=== PATIENT | male | born 1960 ===

== ENCOUNTER 2017-09-01 12:24 | Inpatient (IN) | payer MEDICAID ==
--- NOTE | 2017-09-01 13:35 | RAD ---
HISTORY: baseline COMPARISON: No prior. TECHNIQUE: Chest PA and lateral FINDINGS: LUNGS: No active pulmonary disease. PLEURA: No significant pleural effusion identified. No pneumothorax apparent. CARDIOVASCULAR: Normal. OSSEOUS STRUCTURES: No significant abnormalities. VISUALIZED UPPER ABDOMEN: Normal. OTHER FINDINGS: None. IMPRESSION: No active disease.
[2017-09-01 13:46] LABS: BASO % 0.5 % (0.0-2.0); EOS % 0.1 % (0.0-4.0); HEMATOCRIT 42.6 % (35.0-51.0); LYMPH % 13.9 % (20.0-40.0); MEAN CELL VOLUME 88.2 fL (80.0-94.0); MEAN CORPUSCULAR HEMOGLOBIN 29.2 pg (27.0-31.0); MEAN CORPUSCULAR HGB CONC 33.2 g/dL (33.0-37.0); MEAN PLATELET VOLUME 8.9 fL (7.2-11.7); MONO # 0.2 K/uL (0.0-0.8); MONO % 2.8 % (0.0-10.0); NRBC % 0.3 % (0.0-2.0); WHITE BLOOD COUNT 6.9 K/uL (4.8-10.8)
[2017-09-01 13:48] LABS: RBC URINE 1 /hpf (0-3); URINE BACTERIA RARE (<OCC); URINE BILIRUBIN NEGATIVE (NEGATIVE); URINE BLOOD NEGATIVE (NEGATIVE); URINE COLOR Yellow (YELLOW); URINE GLUCOSE (UA) NORMAL (Normal); URINE KETONE NEGATIVE (NEGATIVE); URINE LEUKOCYTE ESTERASE NEG Leu/uL (Negative); URINE PROTEIN 1+ mg/dL (NEGATIVE); URINE UROBILINOGEN NORMAL mg/dL (0.2-1.0); WBC URINE < 1 /hpf (0-5)
[2017-09-01 14:03] LABS: ALB/GLOB RATIO 0.8 (1.0-2.1); ALCOHOL SERUM < 10 mg/dl (0-10); ALKALINE PHOSPHATASE 69 U/L (38-126); ALT/SGPT 48 U/L (21-72); AST/SGOT 33 U/L (17-59); BILIRUBIN,TOTAL 0.4 mg/dL (0.2-1.3); BLOOD UREA NITROGEN 13 mg/dL (9-20); CALCIUM 8.4 mg/dl (8.6-10.4); CARBON DIOXIDE 27 mmol/L (22-30); CHLORIDE 104 mmol/L (98-107); GFR AFRICAN-AMERICAN > 60; GLUCOSE,RANDOM 244 mg/dL (75-110); POTASSIUM 3.5 mmol/L (3.6-5.2); SODIUM 140 mmol/L (132-148); TOTAL PROTEIN 8.6 g/dL (6.3-8.3)
--- NOTE | 2017-09-01 14:25 | C.PDOC ---
History Of Present Illness 56 y/o male presents to ED requesting detox from heroin. Pt is prescreened. Last use last night. No physical complaints at this time. Time Seen by Provider: 09/01/17 12:48 Chief Complaint (Nursing): Substance Abuse History Per: Patient History/Exam Limitations: no limitations Onset/Duration Of Symptoms: Gradual Current Symptoms Are (Timing): Still Present Suicide/Self Injury Attempted (Context): None Severity: None Pain Scale Rating Of: 0 Associated Symptoms: denies: Suicidal Thoughts, Suicidal Plan Involuntary Hold By: None Recent travel outside of the [place]: No Additional History Per: Patient Past Medical History Reviewed: Historical Data, Nursing Documentation, Vital Signs Vital Signs: Last Vital Signs Temp 97.9 F 09/01/17 17:11 Pulse 72 09/01/17 17:11 Resp 18 09/01/17 17:11 BP 123/76 09/01/17 17:11 Pulse Ox 97 09/01/17 17:11 - Medical History PMH: Asthma, HIV Family History: States: Unknown Family Hx - Social History Hx Alcohol Use: No Hx Substance Use: Yes - Immunization History Hx Tetanus Toxoid Vaccination: No Hx Influenza Vaccination: No Hx Pneumococcal Vaccination: Yes Review Of Systems Except As Marked, All Systems Reviewed And Found Negative. Constitutional: Negative for: Fever, Chills Cardiovascular: Negative for: Chest Pain, Palpitations Respiratory: Negative for: Shortness of Breath Gastrointestinal: Negative for: Nausea, Vomiting, Abdominal Pain Psych: Negative for: Suicidal ideation Physical Exam - Physical Exam Appears: Non-toxic, No Acute Distress Skin: Normal Color, Warm, Dry Head: Atraumatic, Normacephalic Eye(s): bilateral: Normal Inspection Oral Mucosa: Moist Cardiovascular: Rhythm Regular Respiratory: No Accessory Muscle Use Extremity: Normal ROM Neurological/Psych: Oriented x3, Normal Speech ED Course And Treatment - Laboratory Results Result Diagrams: 09/01/17 13:39 09/01/17 13:39 O2 Sat by Pulse Oximetry: 100 Pulse Ox Interpretation: Normal Progress Note: Blood work, UA, EKG, CXR ordered and reviewed. On re-evaluation, patient is resting comfortably, no acute distress. Patient was medically cleared and was accepted to detox by . Disposition - Disposition Disposition: HOSPITALIZED Disposition Time: 15:18 Condition: STABLE - Clinical Impression Clinical Impression: Opiate dependence - PA / RESULTS TECHNICIAN / Resident Statement / has reviewed & agrees with the documentation as recorded. - Scribe Statement The provider has reviewed the documentation as recorded by the Scribe Aly Mcpherson All medical record entries made by the Ade were at my direction and personally dictated by me. I have reviewed the chart and agree that the record accurately reflects my personal performance of the history, physical exam, medical decision making, and the department course for this patient. I have also personally directed, reviewed, and agree with the discharge instructions and disposition.
--- NOTE | 2017-09-01 16:00 | PCM.BM ---
<Dianne Brown - Last Filed: 09/01/17 15:59> Treatment Plan Problems - Problems identified on initial assessmt Ineffective Coping Skills Date Initiated: 09/01/17 Time Initiated: 16:00 Assessment reference: NA Status: Active Treatment assets and liabiliti Patient Assests: negotiates basic needs Patient Liabilities: substance abuse, medical problems - Milieu Protocol Maintain good personal hygiene: daily Encourage regular showers, daily Remind patient to perform daily oral care, other Assist patient to perform ADL's Maintain personal safety: every shift Educate patient to report safety concerns to staff, every shift Monitor environment for contraband/sharps Medication safety: Monitor for expected outcome, potential side effects: every shift, Assess barriers to learning: every shift, Assess readiness for medication education: every shift <Cj Chappell - Last Filed: 09/05/17 00:35> - Diagnosis (1) Opiate dependence Status: Acute Interventions: 09/05/17 00:35 * Assess 7x/week regarding severity of withdrawal * Educate regarding risks, benefits, side effects and alternatives of medications * Use Motivational Interviewing for abstinence * Use CBT for relapse prevention * Medication management for withdrawal symptoms * Encourage medication assisted treatment *
[2017-09-01] MEDS ORDERED: Buprenorphine Hydrochloride 2 mg SL ONE ×3 (17:22→18:25)
[2017-09-01] MEDS ORDERED: Aluminum Hydroxide/Magnesium Hydroxide Susp (30 mL) PO PRN (18:15)
--- NOTE | 2017-09-02 07:28 | PCM.PSYCH ---
Initial Psychiatric Evaluation - Initial Psychiatric Evaluation Type of Admission: Voluntary Legal Status: Capacity Chief Complaint (in patient's own words): I am withdrawing fro heroin'. History of Present Illness and Precipitating Events: This is a 56 years old HM, who lives alone and currently unemployed, came to the hospital for detox from heroin. As per the ED notes, pt reported to use 2-20bags/day intranasally for 13 year, last use was yesterday. Pt. attended detox at [facility] in 2006. His longest period of sobriety is almost 7 years. Pt reported that he relapsed this year and started sniffing 2-5 bags daily. Yesterday he sniffed 2 bags of heroin, and started developing withdrawal symptoms including reported as back pains, dizziness, runny nose, and irritability. Pt. reports 1 episode of seizure in 2011 from xanax w/d. Pt. says he has a 09/07 appointment with a pain management doctor. He reports irritability, but denies any feelings of hopelessness and helplessness, or any suicidal ideation or homicidal ideation. He denies any psychotic symptoms including any auditory or visual hallucinations or any delusions. He denies any other substance abuse. Pt. hopes to attend [facility] upon detox completion. PMH: Asthma, HIV, Cardiac issues? H/o seizures Current Medications: Active Medications Generic Name Dose Route Start Last Admin Trade Name Freq PRN Reason Stop Dose Admin Al Hydrox/Mg Hydrox/Simethicone 30 ml 09/01/17 18:15 Maalox 30 Ml PO TID PRN Indigestion / Heartburn Buprenorphine HCl 8 mg 09/02/17 18:15 Subutex SL 09/05/17 18:14 .TAPER KATI Taper Clonidine HCl 0.1 mg 09/01/17 18:15 Catapres PO Q8 PRN COWS Score More or Equal to 5 Hydroxyzine HCl 25 mg 09/01/17 18:16 09/01/17 22:11 Atarax PO 25 mg Q6 PRN Administration Agitation Loperamide HCl 2 mg 09/01/17 18:15 Imodium PO Q8 PRN Diarrhea Ondansetron HCl 4 mg 09/01/17 18:15 Zofran Tab PO Q8 PRN Nausea/Vomiting Trazodone HCl 50 mg 09/01/17 18:21 09/01/17 22:11 Desyrel PO 50 mg HS PRN Administration Insomnia Past Psychiatric History - Past Psychiatric History Previous Treatment History: Inpatient Pertinent Medical Hx (Current Medical&Sleep Prob, Allergies): Allergies Allergy/AdvReac Type Severity Reaction Status Date / Time No Known Allergies Allergy Verified 09/01/17 12:33 Albuterol HFA [Ventolin HFA 90 mcg/actuation (8 g)] 2 puff IH [id number] PRN Efavirenz/Emtricitab/Tenofovir [Atripla Tablet] 1 each PO DAILY 09/01/17 Sulfamethoxazole/Trimethoprim [Sulfatrim 800-160 mg/20 ml Ariana] 20 ml PO BID 10/18 Review of Systems - Review of Systems All systems: reviewed and no additional remarkable complaints except - Psychiatric Psychiatric: Anxiety, Irritability Mental Status Examination - Personal Presentation Personal Presentation: Looks stated age - Affect Affect: Constricted - Motor Activity Motor Activity: Calm - Reliability in Providing Information Reliability in Providing Information: Good - Speech Speech: Organized - Mood Mood: Anxious - Formal Thought Process Formal Thought Process: No Impairment - Obsessions/Compulsions Obsessions: No Compulsions: No - Cognitive Functions Orientation: Person, Place, Situation, Time Sensorium: Alert Attention/Concentration: Attentive Abstract Thinking: [place] Estimate of Intelligence: Below average Judgement: Imparied, as evidence by: Poor judgement, Intact, as evidence by: Insight regarding need for hospitalization - Risk Risk: Withdrawal, Diminished functioning - Limitations Limitations: Living alone DSM 5 DX - DSM 5 DSM 5 Diagnosis: Opioid use disorder severe Opioid withdrawal - Recommended/Plan of Treatment Treatment Recommendations and Plan of Treatment: Opioid use disorder severe CBT Psychoeducation Supportive therapy, individual therapy Use NH for abstinence Opioid withdrawal CBT Psychoeducation Supportive therapy, individual therapy Clonidine when necessary Subutax taper Trazodone 50 mg Hydroxyzine 25 mg prn PRN meds Asthma: Continue prescribed medications Monitor signs and symptoms HIV: Continue prescribed medications Monitor signs and symptoms H/o Heart disease: Monitor signs and symptoms - Smoking Cessation Smoking Cessation Initiated: No
[2017-09-02] MEDS: Buprenorphine Hydrochloride 2 mg SL SCH (10:35)
[2017-09-02] MEDS ORDERED: Buprenorphine Hydrochloride 2 mg SL SCH (18:15)
[2017-09-02] MEDS ORDERED: Albuterol HFA 90 mcg/actuation (8 g) INH PRN (23:01)
--- NOTE | 2017-09-03 09:11 | PCM.PYCHPN ---
Psychiatric Progress Note - Psychiatric Progress Note Patient seen today, length of contact: 15 min Patient Chief Complaint: I am withdrawing fro heroin'. Problems Identified/Issues Discussed: Patient seen and evaluated, chart reviewed and discussed with the nurse. Patient still reports withdrawal symptoms including nausea, headaches, cramps and sweating. He reports irritable mood but denies any feelings of hopelessness and helplessness. He denies any SI/HI/AVH. She is taking medication and denies any side effects. He needs more time for stabilization. Supportive therapy and psychoeducation were given. Medication Change: Yes (subutex taper) Medical Record Reviewed: Yes Mental Status Examination - Cognitive Function Orientation: Person, Place, Situation, Time Memory: Intact Attention: WNL Concentration: Poor Association: WNL Fund of Knowledge: Poor - Mood Mood: Anxious - Affect Affect: Constricted - Speech Speech: Soft - Formal Thought Process Formal Thought Process: No Impairment - Suicidal Ideation Suicidal Ideation: No - Homicidal Ideation Homicidal Ideation: No Goal/Treatment Plan - Goal/Treatment Plan Need for Continued Stay: Severe depression anxiety, Severe functional impairment Progress Toward Problem(s) and Goals/Treatment Plan: Opioid use disorder severe CBT Psychoeducation Supportive therapy, individual therapy Use MT for abstinence Opioid withdrawal CBT Psychoeducation Supportive therapy, individual therapy Clonidine when necessary Subutax taper Trazodone 50 mg Hydroxyzine 25 mg prn PRN meds Asthma: Continue prescribed medications Monitor signs and symptoms HIV: Continue prescribed medications Monitor signs and symptoms H/o Heart disease: Monitor signs and symptoms - Smoking Cessation Smoking Cessation Initiated: No
[2017-09-03] MEDS: Buprenorphine Hydrochloride 2 mg SL SCH (09:29)
[2017-09-03] MEDS: Efavirenz/Emtricitabine/Teno 1 TAB PO SCH ×3 (10:15→21:39)
[2017-09-03] MEDS: Tmp-Smz 800 mg-160 mg DS Tab PO SCH (21:39)
[2017-09-04] MEDS: Buprenorphine Hydrochloride 2 mg SL SCH (09:27)
[2017-09-04] MEDS: Tmp-Smz 800 mg-160 mg DS Tab PO SCH ×2 (09:59→21:34)
--- NOTE | 2017-09-04 15:41 | PCM.PYCHPN ---
Psychiatric Progress Note - Psychiatric Progress Note Patient seen today, length of contact: 15 min Patient Chief Complaint: "I'm alright" Problems Identified/Issues Discussed: This patient was seen, chart reviewed, and case discussed with staff. Patient reports good sleep overnight but had increased urinary frequency. He asks about possible diabetes mellitus due to "having a little diabetes before." However, he denies any dysuria and reports increased fluid intake. Patient is compliant with medications and reports no side effects. Symptoms are stabilizing but need more time to stabilize. After care discussed, patient hopes to go to the [facility] in [place]. Support and psychoeducation given. Medication Change: Yes (subutex taper) Medical Record Reviewed: Yes Mental Status Examination - Cognitive Function Orientation: Person, Place, Situation, Time Memory: Intact Attention: WNL Concentration: Poor Association: WNL Fund of Knowledge: Poor - Mood Mood: Anxious - Affect Affect: Constricted - Speech Speech: Soft - Formal Thought Process Formal Thought Process: No Impairment - Suicidal Ideation Suicidal Ideation: No - Homicidal Ideation Homicidal Ideation: No Goal/Treatment Plan - Goal/Treatment Plan Need for Continued Stay: Severe depression anxiety, Severe functional impairment Progress Toward Problem(s) and Goals/Treatment Plan: Subutex detox Gabapentin for augmentation As needed medications Attend groups and activities Supportive therapy and psychoeducation MT for abstinence CBT for relapse prevention Encourage MAT Refer to rehab or IOP, and self-help groups
--- NOTE | 2017-09-04 17:59 | CARD ---
APPROVED REPORT EKG Measurement Heart [id number] <Conclusion> Normal sinus rhythm Normal ECG
[2017-09-04] MEDS: Efavirenz/Emtricitabine/Teno 1 TAB PO SCH (21:35)
[2017-09-05 08:22] LABS: ALB/GLOB RATIO 1.1 (1.0-2.1); ALKALINE PHOSPHATASE 71 U/L (38-126); ALT/SGPT 50 U/L (21-72); AST/SGOT 37 U/L (17-59); BILIRUBIN,TOTAL 0.4 mg/dL (0.2-1.3); BLOOD UREA NITROGEN 19 mg/dL (9-20); CALCIUM 8.4 mg/dl (8.6-10.4); CARBON DIOXIDE 26 mmol/L (22-30); CHLORIDE 104 mmol/L (98-107); GFR AFRICAN-AMERICAN > 60; GLUCOSE,RANDOM 110 mg/dL (75-110); POTASSIUM 4.5 mmol/L (3.6-5.2); SODIUM 138 mmol/L (132-148); TOTAL PROTEIN 7.8 g/dL (6.3-8.3)
[2017-09-05] MEDS: Buprenorphine Hydrochloride 2 mg SL SCH (09:25)
[2017-09-05] MEDS: Tmp-Smz 800 mg-160 mg DS Tab PO SCH ×2 (09:26→21:43)
--- NOTE | 2017-09-05 14:54 | PCM.PYCHPN ---
Psychiatric Progress Note - Psychiatric Progress Note Patient seen today, length of contact: 15 min Patient Chief Complaint: "I'm just worried about where to go after this" Problems Identified/Issues Discussed: This patient was seen, chart reviewed, and case discussed with staff. Patient reports good sleep overnight and offered no further complaints regarding urination. He reports some anxiety because of a pending appointment with outpatient pain management and how it affects his recovery at [facility]. After discussion, he will work with the unit staff to make arrangements for after discharge. Patient is compliant with medications and reports no side effects. Symptoms are stabilizing but need more time to stabilize. After care discussed, patient hopes to go to the [facility] in [place]. Support and psychoeducation given. Medication Change: Yes (subutex taper) Medical Record Reviewed: Yes Mental Status Examination - Cognitive Function Orientation: Person, Place, Situation, Time Memory: Intact Attention: WNL Concentration: WNL Association: WN Fund of Knowledge: WNL - Mood Mood: Anxious - Affect Affect: Constricted - Speech Speech: Appropriate - Formal Thought Process Formal Thought Process: No Impairment - Suicidal Ideation Suicidal Ideation: No - Homicidal Ideation Homicidal Ideation: No Goal/Treatment Plan - Goal/Treatment Plan Need for Continued Stay: Severe depression anxiety, Severe functional impairment Progress Toward Problem(s) and Goals/Treatment Plan: Subutex detox Gabapentin for augmentation As needed medications Attend groups and activities Supportive therapy and psychoeducation AL for abstinence CBT for relapse prevention Encourage MAT Refer to rehab or IOP, and self-help groups
[2017-09-05] MEDS: Efavirenz/Emtricitabine/Teno 1 TAB PO SCH (21:43)
--- NOTE | 2017-09-06 08:44 | PCM.PYCHDC ---
Mental Status Examination - Mental Status Examination Orientation: Person, Place, Situation, Time Memory: Intact Mood: Anxious Affect: Constricted Speech: Appropriate Attention: WNL Concentration: WNL Association: WNL Fund of Knowledge: WNL Formal Thought Process: No Impairment Suicidal Ideation: No Current Homicidal Ideation?: No Discharge Summary - Discharge Note Reason for Hospitalization: heroin detox Psychiatric History (includes Medical, Family, Personal Hx): Denies Laboratory Data: Abnormal Lab Results 09/05/17 07:49 Hemoglobin A1c 5.9 Consultations:: List each consultation separately and include: 1. Reason for request. 2. Findings. 3. Follow-up Summary of Hospital Course include:: 1. Description of specific treatment plan utilized for patients during their course of treatmen. 2. Summarize the time- course for resolution of acute symptoms and/or regressed behaviors. 3. Describe issues identified and worked on during hospitalization. 4. Describe medication utilized. 5. Describe medical problems identified and treated. 6. Reassessment of suicide risk Summary of Hospital Course: This is a 56 years old HM, who lives alone and currently unemployed, came to the hospital for detox from heroin. As per the ED notes, pt reported to use 2-20bags/day intranasally for 13 year, last use was yesterday. Pt. attended detox at [facility] in 2006. His longest period of sobriety is almost 7 years. Pt reported that he relapsed this year and started sniffing 2-5 bags daily. Yesterday he sniffed 2 bags of heroin, and started developing withdrawal symptoms including reported as back pains, dizziness, runny nose, and irritability. Pt. reports 1 episode of seizure in 2011 from xanax w/d. Pt. says he has a 09/07 appointment with a pain management doctor. He reports irritability, but denies any feelings of hopelessness and helplessness, or any suicidal ideation or homicidal ideation. He denies any psychotic symptoms including any auditory or visual hallucinations or any delusions. He denies any other substance abuse. Pt. hopes to attend [id number] upon detox completion. PMH: Asthma, HIV, Cardiac issues? H/o seizures Hospital course: The patient was admitted and started on treatment with psychotherapy, support, psychoeducation, and medications. NC and CBT used. Patient attended groups and activities, as well as milieu therapy. All the risks and benefits of medications are discussed, and the patient understood and agreed. Patient improved with the treatments provided. After care discussed with the patient. - Final Diagnosis (DSM 5) Condition upon Discharge: STABLE DSM 5: Opioid use disorder, severe Opioid withdrawal Disposition: HOME/ ROUTINE Follow-up Treatment Plan: Continue below medications after discharge Follow after care plan as discussed Use relapse prevention skills Return to ER or call 911 if suicidal, homicidal, or if symptoms relapse Stay away from stress, alcohol, and drugs See primary doctor regularly and get labs
[2017-09-06] MEDS: Tmp-Smz 800 mg-160 mg DS Tab PO SCH (09:39)
[2017-09-06 10:46] VITALS: BP 111/77; PULSE 76; RESP 20; TEMP 98.2; O2SAT 100
== END 2017-09-06 11:20 | disposition home or self-care (01) | DRG 715 ==
LOC: C.ER 12:24 → C.7D 15:17
PROVIDERS: ADMIT Psychiatry & Neurology Psychiatry; ATTEND Psychiatry & Neurology Psychiatry
PROC: HZ2ZZZZ Detoxification Services for Substance Abuse Treatment (ICD-10-PCS; principal; 2017-09-01)
PROC: GZ56ZZZ Individual Psychotherapy, Supportive (ICD-10-PCS; 2017-09-01)
DX: F11.23 Opioid dependence with withdrawal (principal); Z21 Asymptomatic human immunodeficiency virus [HIV] infection status; F41.8 Other specified anxiety disorders; J45.909 Unspecified asthma, uncomplicated